=== PATIENT | female | born 1950 ===

== ENCOUNTER 2020-11-11 12:05 | Outpatient (CLI) | payer OTHER ==
[~2020-11-11 12:05] MED LIST: KLONOPIN1 MG/TAB; LIRICA; SAVELLA; TRAMADOL HCL50 MG; TRASODONE; TRILIPIX
== END 2020-11-11 17:11 | disposition home or self-care (01) ==
LOC: OFIC 805 12:05
PROVIDERS: ATTEND Otolaryngology Otology & Neurotology
DX: H91.8X1 Other specified hearing loss, right ear (principal)